=== PATIENT | female | born 1960 | race Caucasian/White ===

== ENCOUNTER 2023-10-23 12:34 | Outpatient (OUT) | payer BC, SELFPAY ==
--- NOTE | 2023-10-23 12:45 | VEIN_ITS ---
Patient Name: ELLE ISIDRO MR#: [id number] : 1960 Exam Date: 10/23/2023 Ordering Doctor: DR JEFF AVILEZ M.D. RADIOLOGY REPORT PROCEDURE: FACILITY [facility] - OFFICE VISIT INITIAL COMPARISON: None. PROGRESS NOTES: [age] year old female who presents with a 5 year history of leg swelling, pain, muscle cramping, dilated bulging veins, discolored veins. The patient's right leg symptoms are worse than the left. There has been a progression of symptoms over time. This increases with prolonged leg dependency. The patient describes an improvement with rest, elevation, walking, support stockings common medication. The patient denies any signs and symptoms to suggest arterial ischemia. The patient describes a family history of varicose veins on paternal side. The patient has drinking and smoking history of: None. Patient has a past medical history significant for atrial fibrillation, hypertension, hypothyroidism, and obesity. The patient denies a history of deep venous thrombus or pulmonary embolus. See separate history and physical for medication list. Prior treatment for vein disease within left leg. Has worn compression stockings until recently when patient discontinued due to the amount of skin tenderness/pain. After review of nurse notes, history and physical exam I discussed at length the pathophysiology of venous hypertension and possible treatments, therapies and strategies available. We discussed at length the importance of elevating the lower extremities above the level of the heart, increased physical activity and compression stocking use. Ultrasound venous reflux study performed today was discussed at length with the patient. The report demonstrates abnormally dilated and incompetent right great saphenous, small saphenous, and anterior accessory saphenous veins with associated varicosities and design engineer veins segments of mild dilation and numerous segments demonstrating reflux within the left great saphenous, also small saphenous, and anterior accessory saphenous veins with associated varicosities. Left great saphenous vein is a discontinuous, likely from prior treatment. PHYSICAL EXAM: The right leg demonstrates multiple varicosities, numerous spider veins, no ulceration, mild edema at time of imaging, no skin discoloration. The left leg demonstrates several varicosities, numerous spider veins, no ulceration, mild edema at time of imaging, no skin discoloration. Both thighs, legs and feet were symmetrically warm to the touch. Good posterior tibial and dorsalis pedis pulses were present bilaterally. VEIN/VC Facility EST Comprehensive IMPRESSION: 1. Bilateral lower extremity venous insufficiency 2. Bilateral lower extremity varicose veins 3. Bilateral lower extremity subcutaneous edema 4. No flow significant arterial disease 5. CEAP: C3, EC, , NV PLAN: 1. Continued use of compression stockings 2. Elevated legs and increased physical activity symptomatic relief 3. Endovenous laser ablation of right great saphenous, right small saphenous, and right anterior accessory saphenous veins. 4. Microfoam chemical ablation of incompetent branch saphenous varicosities bilaterally and incompetent discontinuous segment of left great saphenous vein (prior treatment). 5. Bilateral sclerotherapy. Nurse notes, history and physical were reviewed and confirmed, see attached forms. The nurse was present throughout the physical exam and consultation Dictated by: Oneil Elizabeth M.D. on 10/23/2023 at 14:52 Approved by: Oneil Elizabeth M.D. on 10/23/2023 at 15:01
--- NOTE | 2023-10-23 12:45 | VEIN_ITS ---
Patient Name: ELLE ISIDRO MR#: [id number] : 1960 Exam Date: 10/23/2023 Ordering Doctor: DR JEFF AVILEZ M.D. RADIOLOGY REPORT PROCEDURE: VC EXT VENOUS REFLUX AMBER LMTD COMPARISON: None. INDICATIONS: Painful varicose veins of bilat lower extremities I83.813 TECHNIQUE: Duplex imaging of the lower extremity to assess the deep and superficial venous system for the presence of deep or superficial venous incompetence and to document the location and severity of disease. The study includes evaluation of the great saphenous vein (GSV), anterior accessory saphenous vein (AASV) and small saphenous vein (SSV). Patient scanned in reverse Trendelenburg and standing. FINDINGS: RIGHT LOWER EXTREMITY: Saphenofemoral Junction Reflux: Yes 6.3mm 2.4 sec GSV: Diam (mm) Reflux/ Time (sec) Proximal Thigh 6.2 Yes 4.8 Mid Thigh 5.4 Yes 1.6 Distal Thigh 4.0 Yes 3.5 Prox Calf 5.6 Yes 4.6 Mid Calf 5.3 Yes 1.9 Saphenopopliteal Junction Reflux: 7.9mm Yes 0.5 SSV: Proximal Calf 6.1 Yes 0.5 Mid Calf 6.0 Yes 1.3 AASV: Proximal Thigh 5.8 Yes 1.8 Mid Thigh 5.5 Yes 0.8 Distal Thigh Thrombi: No acute or chronic thrombus. Compressibility: Normal. Flow: Mild deep venous reflux. Preforator: Distal medial lower leg 3.6mm with 1.0s reflux. Distal medial lower leg measures 3.8 mm with 0.9s reflux. Tech Note: Fluid collection anterior/lateral right knee measures 6.6 x 5.3 x 1.2 cm. Incompetent varicose vein distal medial thigh off of AASV measures 4.4 mm with 1.0s reflux. Varicose vein proximal medial lower leg measures 6.9 mm with 4.2s reflux. Varicose vein mid posterior medial calf measures 6.1 mm with 1.1s reflux. Proximal medial lower leg varicose vein measures 4.0 mm with 1.6s reflux. LEFT LOWER EXTREMITY: Saphenofemoral Junction Reflux: Yes 8.0 mm 3.0 sec GSV: Diam (mm) Reflux/Time (sec) Proximal Thigh 5.6 Yes 0.7 Mid Thigh 2.5 Yes 0.5 Distal Thigh 3.0 Yes 0.3 Prox Calf 2.1 Yes 1.0 Mid Calf 2.6 Yes 0.8 Saphenopopliteal Junction Relux: 4.2 mm Yes 1.3 SSV: Proximal Calf 2.4 Yes 1.1 Mid Calf 3.7 Yes 0.4 AASV: Proximal Thigh 5.5 Yes 1.4 Mid Thigh 4.2 Yes 0.5 Distal Thigh Thrombi: No acute or chronic thrombus. Compressibility: Normal. Flow: Mild deep venous reflux. Roll Slicing Machine Tender: Mid posterior calf 6.4 mm with 0.5s reflux. Tech Note: Discontinuous GSV and SSV. Heterogeneous area with posterior shadow proximal medial lower leg measures 9.6 x 8.6 x 5.7 mm. Fluid collection anterior/lateral left knee measures 5.9 x 4.2 x 1.0 cm. Incompetent varicose vein mid posterior calf measures 5.1 mm with 4.6s reflux. CONCLUSION: 1. Abnormally dilated and incompetent right great saphenous vein, small saphenous vein, and anterior accessory saphenous vein with associated incompetent branch saphenous varicosities. 2. Discontinuous left great saphenous vein with segments of abnormal dilation and reflux. 3. Abnormal reflux within left small saphenous and anterior accessory saphenous veins with borderline dilation. 4. Prominent scratcher tender veins bilaterally with abnormal reflux. 5. Small heterogeneous masslike area 10 millimeters diameter with significant posterior shadowing seen within proximal medial lower left leg. Consider radiographs of left tibia and fibula for possible metallic fragment or calcification. Dictated by: Oneil Elizabeth M.D. on 10/23/2023 at 14:17 Approved by: Oneil Elizabeth M.D. on 10/23/2023 at 14:52
== END 2023-10-23 12:35 | disposition home or self-care (01) ==
LOC: VC 12:35
PROVIDERS: PCP Family Medicine; Visit Provider Nurse Practitioner Family
DX: I87.2 Venous insufficiency (chronic) (peripheral) (principal); M79.604 Pain in right leg; M79.605 Pain in left leg
CPT/HCPCS: 93970; G0463

== ENCOUNTER 2023-10-28 13:42 | Outpatient (OUT) | payer BC, SELFPAY ==
--- NOTE | 2023-10-28 14:00 | CA_ITS ---
Patient Name: ELLE ISIDRO MR#: [id number] : 1960 Exam Date: 10/28/2023 Ordering Doctor: NATALIA WHEAT CNP ECHOCARDIOGRAM REPORT PROCEDURE: CA ECHO DOPPLER COMPLETE INDICATIONS: Dyspnea on exertion, edema, hypertension, loop recorder, ablation COMPARISON: None. DESCRIPTION: COMPLETE ECHOCARDIOGRAM Real-time transthoracic echocardiography with 2D, M-mode, spectral and color flow Doppler performed. QUALITY: Technical quality was good. 65 , 262#, BSA 2.22 m2, BP 138/70 LEFT VENTRICLE: Normal chamber size. Normal left ventricular wall thickness. Normal systolic function. LV EF: Normal left ventricular ejection fraction, (>55%). DIASTOLIC: Normal diastolic function. ATRIAL SEPTUM: Visually appears intact. LEFT ATRIUM: Normal chamber size. RIGHT ATRIUM: Normal chamber size. RIGHT VENTRICLE: Normal chamber size. Normal right ventricular systolic function. TRICUSPID VALVE: Normal mobility and thickness. No stenosis with trivial regurgitation. Doppler studies reveal mildly (35-45) elevated right sided pressures. RVSP 38 mmHg MITRAL VALVE: Normal mobility and thickness. No evidence of mitral valve stenosis. Mild mitral annular calcification. No mitral regurgitation. AORTIC VALVE: Normal trileaflet appearance. No visible sclerosis. Normal leaflet mobility. No evidence of aortic valve stenosis. No aortic regurgitation. AORTIC ROOT: Normal diameter and appearance. PULMONIC VALVE: Normal thickness and mobility. No stenosis. No regurgitation. PERICARDIUM: No evidence of pericardial effusion. IVC: IVC is dilated (2.5 cm), collapses with respiration. PLEURA: CONCLUSION: 1. Normal ventricular size and systolic function. LVEF is 55 to 60%. 2. No significant valvular dysfunction. 3. Mildly elevated right-sided pressures. 4. No pericardial effusion. Adult Echocardiography Procedure Report Left Ventricle LVEDD (3.7 - 5.6 cm): 4.43 cm LVESD (2.2 - 4.0 cm): 3.04 cm LVIVS thickness (0.6 - 1.2 cm): 0.83 cm LVPW thickness (0.5 - 1.0 cm): 0.87 cm e': 0.12 m/s E - e': 6.98 LVOT Max Gradient: 4.99 mm[Hg] LVOT Area (cm2): 1.12 m/s Peak Velocity (LVOT): 1.12 m/s Mean Velocity (LVOT): 0.73 m/s LVOT Diameter 1.74 cm Left Atrium LA Volume Index (2D A2C): 26.67 ml/m2 Left Atrium Systolic Dimension: 3.16 cm Mitral Valve MV E to A Ratio: 1.77 Mitral Valve A-Wave Peak Velocity: 0.46 m/s Mitral Valve E-Wave Peak Velocity: 0.82 m/s Right Ventricle Aorta AO Root Diam: 3.44 cm Aortic Valve AoV Area (Peak Cholo): 1.61 cm2, 1.61 cm2 AoV Area (VTI): 1.64 cm2, 1.64 cm2 Peak Velocity(Antegrade Flow): 1.65 m/s Peak Gradient(Antegrade Flow): 10.86 mm[Hg] Mean Velocity(Antegrade Flow): 1.03 m/s Mean Gradient(Antegrade Flow): 4.96 mm[Hg] Velocity Time Integral: 39.22 cm Tricuspid Valve Peak Velocity (Regurgitant Flow): 2.73 m/s Pulmonic Valve Mean Gradient: 2.91 mm[Hg] Mean Velocity: 0.80 m/s Peak Velocity: 1.07 m/s, 1.10 m/s Peak Gradient: 4.87 mm[Hg], 4.61 mm[Hg] Right Atrium Right Atrium Systolic Pressure: 41.45 ml, 41.45 ml Dictated by: Trenton Mcmahan M.D. on 10/29/2023 at 09:30 Approved by: Trenton Mcmahan M.D. on 10/29/2023 at 09:33
--- OUTSIDE RECORDS SUMMARY | 2023-10-28 14:00 | XMS_ITS | CCD ---
Author Organization [facility] Care Team Providers Care [employer] Manager Name Role Phone ALFIE SOTO Admitting Unavailab le ALFIE SOTO Attending Unavailab le HEMEYER, EDWARD Primary Care Unavailable ALFIE SOTO Consulting Unavailab le HEMEYER, EDWARD Admitting Unavailable HEMEYER, EDWARD Attending Unavailable HEMEYER, EDWARD Primary Care Unavailable HEMEYER, EDWARD Consulting Unavailable HEMEYER, EDWARD Admitting Unavailable HEMEYER, EDWARD Attending Unavailable HEMEYER, EDWARD Primary Care Unavailable ELTAHAWY, EHAB Admitting Unavailable ELTAHAWY, EHAB Attending Unavailable HEMEYER, EDWARD Primary Care Unavailable ELTAHAWY, EHAB Consulting Unavailable ELTAHAWY, EHAB Admitting Unavailable ELTAHAWY, EHAB Attending Unavailable HEMEYER, EDWARD Primary Care Unavailable ELTAHAWY, EHAB Consulting Unavailable ELTAHAWY, EHAB Admitting Unavailable ELTAHAWY, EHAB Attending Unavailable HEMEYER, EDWARD Primary Care Unavailable ELTAHAWY, EHAB Consulting Unavailable HEMEYER, EDWARD Referring Unavailable RICO SCHROEDER Admitting Unavailable RICO SCHROEDER Attending Unavailable HEMEYER, EDWARD Primary Care Unavailable ARJUN, RICO Admitting Unavailable ARJUN, RICO Attending Unavailable HEMEYER, EDWARD Primary Care Unavailable HEMEYER, EDWARD Referring Unavailable HEMEYER, EDWARD Referring Unavailable ARJUN, RICO Admitting Unavailable ARJUN RICO Attending Unavailable HEMEYER, EDWARD Primary Care Unavailable HEMEYER, EDWARD J Attending Unavailable HEMEYER, EDWARD J Attending Unavailable ARJUN, RICO Referring Unavailable DEEJAY HUANG Attending Unavailable NATALIA WHEAT Attending Unavailable Allergies Allergy Classification Reported Allergen(s) Allergy Type Date of Onset Reaction(s) Facility (3 sources) Morphine; Translations: [MORPHINE] Drug Allergy 8 [facility] Repository (3 sources) Penicillins; Translations: [PENICILLINS] Drug allergy (disorder) 8 [facility] Repository (3 sources) Prochlorperazine ; Translations: [DULOXETINE] Drug Allergy 9 [facility] Repository (1 source) Latex; Translations: [LATEX] Propensity to adverse reactions (disorder) 2 [facility] Repository (1 source) Aspirin; Translations: [ASPIRIN] Drug Allergy 8 [facility] Repository Problems Active Problems Problem Classification Problem Date Documented Da te Episodic/Chronic Cardiac dysrhythmias (6 sources) Ventricular tachycardia; Translations: [Paroxysmal atrial fibrillation] Onset: 07-15-2018 Chronic Cardiac dysrhythmias (2 sources) Palpitations; Translations: [Palpitations] Onset: 09-03-2023 Episodic Disorders of lipid metabolism (1 source) Mixed hyperlipidemia; Translations: [MIXED HYPERLIPIDEMIA] Onset: 07-20-2018 Chronic Essential hypertension (7 sources) Essential (primary) hypertension; Translations: [ESSENTIAL PRIMARY HYPERTENSION] Onset: 07-20-2018 Chronic Other connective tissue disease (2 sources) Pain in right leg; Translations: [Pain in right leg] Onset: 09-11-2022 Episodic Other connective tissue disease (2 sources) Pain in left leg; Translations: [Pain in left leg] Onset: 09-11-2022 Episodic Other lower respiratory disease (4 sources) Dyspnea, unspecified; Translations: [DYSPNEA UNSPECIFIED] Onset: 09-01-2018 Episodic Other lower respiratory disease (2 sources) Other forms of dyspnea; Translations: [Other forms of dyspnea] Onset: 10-06-2023 Episodic Past or Other Problems Problem Classification Problem Date Documented Date Episodic/Chronic Conditions associated with dizziness or vertigo (1 source) Dizziness and giddiness; Translations: [DIZZINESS AND GIDDINESS] Onset: 07-02-2018 Episodic Diabetes mellitus without complication (1 source) Impaired glucose tolerance (oral); Translations: [IMPAIRED GLUCOSE TOLERANCE ORAL] Onset: 07-20-2018 Episodic Nausea and vomiting (1 source) Nausea; Translations: [NAUSEA] Onset: 07-02-2018 Episodic Other diseases of veins and lymphatics (2 sources) Venous insufficiency (chronic) (peripheral); Translations: [Venous insufficiency (chronic) (peripheral)] Onset: 09-11-2022 Episodic Other screening for suspected conditions (not mental disorders or infectious disease) (1 source) Abnormal electrocardiogram [ECG] [EKG]; Translations: [ABNORMAL ELECTROCARDIOGRAM] Onset: 07-20-2018 Episodic Other skin disorders (1 source) Generalized hyperhidrosis; Translations: [GENERALIZED HYPERHIDROSIS] Onset: 07-02-2018 Episodic Residual codes; unclassified (1 source) Other specified personal risk factors, not elsewhere classified; Translations: [OTH SPEC PERSONAL RISK FACTORS NEC] Onset: 07-20-2018 Episodic Syncope (5 sources) Syncope and collapse; Translations: [SYNCOPE AND COLLAPSE] Onset: 06-30-2018 Episodic Varicose veins of lower extremity (2 sources) Varicose veins of bilateral lower extremities with other complications; Translations: [Varicose veins of bilateral lower extremities with other complications] Onset: 09-11-2022 Episodic Results Test Name Value Interpretation Reference Range Facility 36on 10-24-2023 36 Please have her go u p on her bumex to 1mg daily and continue this. Have her get labs at the end of next week. Thanks [facility] 37on 10-06-2023 37 *Increase bumex to 1 mg daily x5 days then reduce down to 0.5mg daily. *Have lab work done around October 15 or . *[facility] will call you to schedule a heart ultrasound. *We will call you in about 2 weeks to see how your weight and swelling is doing. [facility] Office Visiton 10-06-2023 Follow-up visit [id number] Elle Hurst 1960 Date Provider Department Center 10/06/2023 NATALIA GARAY Family History Problem Relation Age of Onset Diabetes Mother Cancer Mother Coronary artery disease Maternal Grandmother Stroke Maternal Grandmother Family Status - Relation Status Age at Mother Maternal Grandmother Level of Service:13813 MT OFFICE/OUTPATIENT ESTABLISHED MOD MDM 30 MIN [facility] Office Visiton 04-14-2023 Follow-up visit [id number] Elle Hurst 1960 F Date Provider Department Center 04/14/2023 DEEJAY BHANDARI Family History Problem Relation Age of Onset Diabetes Mother Cancer Mother Coronary artery disease Maternal Grandmother Stroke Maternal Grandmother Family Status - Relation Status Age at Mother Maternal Grandmother Level of Service:48020 MT OFFICE/OUTPATIENT ESTABLISHED MOD MDM 30-39 MIN Normal [facility] Free T3on 10-28-2021 FT3 3.39 pg/mL Normal 2.00-4.40 [facility] Specialist Comment on above: Performed By: #### T SH, FT4, FT3 #### [facility] [address] [place], [place] [id number] Free T4on 10-28-2021 Free T4 [Mass/Vol] 1.13 ng/dL Normal 0.80-1.80 [facility] Comment on above: Performed By: #### T SH, FT4, FT3 #### [facility] [address] [place], [place] [id number] Q - T3 TOTALon 10-28-2021 T3, TOTAL 111 ng/dL Normal 76-181 [facility] Specialist Comment on above: Order Comment: [facility] performed at: [place], [employer], [address], [address] [place] [address], [id number], Rope Rider: Balta Tran MD [facility] Date/Time: [facility] Results Received Date/Time: [facility] Reported Date/Time: Performed By: #### 8 59X, [id number] #### [facility] [address] [place] [address] Q - T3,REVERSE,LC/MS/MSon T3 REVERSE, LC/MS/MS 16 ng/dL Normal 8-25 [facility] Specialist Comment on above: Order Comment: [facility] performed at: [facility], [facility] [employer], [address], [place], [place], , Rope Rider: John Morton M.D.,PhD [facility] Date/Time: [facility] Results Received Date/Time: [facility] Reported Date/Time: Result Comment: This test was developed and its analytical performance characteristics have been determined by [employer] [place], [place]. It has not been cleared or approved by the U.S. Food and Drug Administration. This assay has been validated pursuant to the CLIA regulations and is used for clinical purposes. Performed By: #### 8 59X, [id number] #### [facility] [address] [place] [address] TSHon 10-28-2021 TSH 1.580 uIU/mL Normal 0.400-4.500 [facility] Specialist Comment on above: Performed By: #### T SH, FT4, FT3 #### [facility] [address] [place], [place] [id number] Comprehensive Metabolic Pane carline 10-22-2021 Albumin [Mass/Vol] 4.4 g/dL Normal 3.6-5.1 [facility] Comment on above: Performed By: #### C SHAZIA, LIPD #### [facility] [address] [place], [place] [id number] Albumin/Globulin [Mass ratio] 1.5 {ratio} Normal 1.0-2.5 [facility] Comment on above: Performed By: #### C SHAZIA, LIPD #### [facility] [address] [place], [place] [id number] ALP [Catalytic activity/Vol] 153 U/L High 35-119 [facility] Comment on above: Performed By: #### C SHAZIA, LIPD #### [facility] [address] [place], [place] [id number] ALT [Catalytic activity/Vol] 27 U/L Normal 6-33 [facility] Comment on above: Result Comment: 05/15 Female reference range changed. Performed By: #### C SHAZIA, LIPD #### [facility] [address] [place], [place] [id number] Anion gap [Moles/Vol] 16 mmol/L Normal 12-20 [facility] Specialist Comment on above: Result Comment: Effe ctive 06/20/2019 reference range changed. Performed By: #### C MP, LIPD #### [facility] [address] [place], [place] [id number] AST [Catalytic activity/Vol] 25 U/L Normal 9-34 [facility] Comment on above: Performed By: #### C SHAZIA LIPD #### [facility] [address] [place], [place] [id number] Bilirubin [Mass/Vol] 0.47 mg/dL Normal 0.30-1.20 [facility] Comment on above: Performed By: #### C SHAZIA LIPD #### [facility] [address] [place], [place] [id number] BUN/CREA 30 Ratio High 6-22 [facility] Comment on above: Performed By: #### C SHAZIA LIPD #### [facility] [address] [facility] [place] [id number] Calcium [Mass/Vol] 9.9 mg/dL Normal 8.6-10.2 [facility] Comment on above: Performed By: #### C SHAZIA LIPD #### [facility] [address] [place], [place] [id number] Chloride [Moles/Vol] 100 mmol/L Normal 98-107 [facility] Comment on above: Performed By: #### C SHAZIA LIPD #### [facility] [address] [facility] [place] [id number] CO2 [Moles/Vol] 27 mmol/L Normal 20-31 [facility] Comment on above: Performed By: #### C SHAZIA LIPD #### [facility] [address] [facility] [id number] Creatinine [Mass/Vol] 0.9 mg/dL Normal 0.6-1.4 [facility] Comment on above: Performed By: #### C SHAZIA LIPD #### [facility] [address] [facility] [id number] eGFRAA 79 mL/min/1.73m2 Normal >60 [facility] Specialist Comment on above: Performed By: #### C SHAZIA LIPD #### [facility] [address] [facility] [id number] eGFRNAA 65 mL/min/1.73m2 Normal >60 [facility] Specialist Comment on above: Performed By: #### C SHAZIA LIPD #### [facility] [address] [place], [place] [id number] Globulin (S) [Mass/Vol] 2.9 g/dL Normal 1.9-3.7 [facility] Specialist Comment on above: Performed By: #### C SHAZIA, LIPD #### [facility] [address] [place], [place] [id number] Glucose [Mass/Vol] 103 mg/dL High 65-99 [facility] Comment on above: Result Comment: For FASTING Glucose --- ADA reference ranges: Normal 65-99 mg/dl Prediabetes 100-125 Diabetes >/= 126 Performed By: #### C SHAZIA LIPD #### [facility] [address] [place], [place] [id number] Potassium [Moles/Vol] 4.8 mmol/L Normal 3.5-5.5 [facility] Specialist Comment on above: Performed By: #### C SHAZIA LIPD #### [facility] [address] [place], [place] [id number] Protein [Mass/Vol] 7.3 g/dL Normal 6.1-8.1 [facility] Specialist Comment on above: Performed By: #### C SHAZIA LIPD #### [facility] [address] [place], [place] [id number] Sodium [Moles/Vol] 138 mmol/L Normal 135-146 [facility] Specialist Comment on above: Performed By: #### C SHAZIA, LIPD #### [facility] [address] [place], [place] [id number] Urea nitrogen [Mass/Vol] 27 mg/dL High 7-25 [facility] Specialist Comment on above: Performed By: #### C SHAZIA LIPD #### [facility] [address] [place], [place] [id number] Hemoglobin A1Con 10-22-2021 EAG 116.89 Normal [facility] Comment on above: Performed By: #### A 1C #### [facility] [address] [place], [place] [id number] HbA1c (Bld) [Mass fraction] 5.7 % Normal 4.0-6.0 [facility] Specialist Comment on above: Performed By: #### A 1C #### [facility] [address] [place], [place] [id number] Lipid Panelon 10-22-2021 Cholesterol [Mass/Vol] 170 mg/dL Normal 125-200 [facility] Specialist Comment on above: Result Comment: Low risk < 200mg/dL Borderline risk 201-239 mg/dl High risk > or equal to 240 Performed By: #### C MP, LIPD #### [facility] [address] [place], [place] [id number] Cholesterol in HDL [Mass/Vol] 49 mg/dL Normal >40 [facility] Specialist Comment on above: Result Comment: High Cardiovascular Risk HDL <40 mg/dL Low Cardiovascular Risk HDL > or equal to 60 mg/dl Performed By: #### C MP, LIPD #### [facility] [address] [place], [place] [id number] Cholesterol in LDL [Mass/Vol] 110 mg/dL Normal [facility] Comment on above: Result Comment: LDL ATP III CLASSIFICATION LDL less than 100 mg/dl Optimal LDL 100-129 mg/dl Near or above optimal LDL 130-159 Borderline high LDL 160-189 High LDL greater than 189 mg/dl Very High Performed By: #### C MP, LIPD #### [facility] [address] [place], [place] [id number] Cholesterol in VLDL [Mass/Vol] 11 mg/dL Normal [facility] Specialist Comment on above: Performed By: #### C MP, LIPD #### [facility] [address] [place], [place] [id number] Cholesterol.total/C holesterol in HDL [Mass ratio] 3 {ratio} Normal [facility] Comment on above: Performed By: #### C MP, LIPD #### [facility] [address] [place], [place] [id number] Triglyceride [Mass/Vol] 55 mg/dL Normal 30-150 [facility] Specialist Comment on above: Result Comment: TRIG ATPIII CLASSIFICATIONS TRIG less than 150 mg/dl Normal TRIG 150-199 mg/dl Borderline High TRIG 200-500 mg/dl High TRIG greather than 500 mg/dl Very High Performed By: #### C MP, LIPD #### [facility] [address] [place], [place] [id number] APTTon 08-14-2021 aPTT Coag (Bld) [Time] 28.5 s Normal 25.0-35.0 [facility] Comment on above: Result Comment: ALL RESULTS MUST BE INTERPRETED WITH RESPECT TO BLOOD DRAWING ARTIFACT OR DILUTION ERROR OF ANTICOAGULANT AT THE TIME OF SAMPLING. THE APTT SHOULD NOT BE USED TO MONITOR UNFRACTIONATED HEPARIN THERAPY, THIS LABORATORY NO LONGER HAS AN ESTABLISHED THERAPEUTIC RANGE BASED ON THE APTT. IT IS RECOMMENDED THAT THE UFH - HEPARIN ASSAY (ANTI-XA ACTIVITY) BE USED FOR THIS PURPOSE. Performed By: #### 5 [id number], [id number] #### [facility] [address] Cardiovascular Lab Reporton 08-14-2021 Cardiovascular Lab Report [facility] Patient Name: Ar[facility] Freddy MR #: [id number] Department of Physician: Rico Schroeder MD Medicine Service Date: 08/14/2021 Division of Birthdate: 1960 Cardiology Room #: [facility] [place] [address] Cardiovascular Laboratory Report ATRIAL FIBRILLATION ABLATION PROCEDURE NOTE DATE OF PROCEDURE: 08/14/2021 PERFORMING PHYSICIAN: Dr. Rico Schroeder CONSENT: Patient NAME OF THE PROCEDURE: Pulmonary Vein Isolation and Comprehensive EP study. INDICATIONS FOR PROCEDURE: 1. Persistent atrial fibrillation non responsive to pharmacologic therapy. PROCEDURES PERFORMED: 1. Sonosite guided venous access as noted below and images stored in PACS. 2. Comprehensive EP study and catheter ablation for persistent atrial fibrillation through the pulmonary vein isolation technique. This includes right atrial recording and pacing, His bundle recording and right ventricular recording and pacing. 3. Intracardiac EP 3D mapping. 4. Intracardiac echocardiogram 5. Left atrial and coronary sinus recording and pacing to assess ablation results. 6. Left heart pressure measurements and LV pacing and recording. 7. Induction of arrhythmia and testing of ablation results using intravenous adenosine infusion. 8. Fluroscopy. FLUOROSCOPY:6 min 2s/44mGray PROCEDURE NOTE: 60-year-old lady with a history of atrial fibrillation, who has been noted to have palpitations and on evaluation was noted to have atrial fibrillation. She has been previously on flecainide and increased to 100 mg twice daily and had weight loss. Despite that, she still had evidence of atrial fibrillation. She opted to proceed with catheter ablation for treatment of her underlying atrial fibrillation. Risks, benefits and alternatives of the procedure were discussed with the patient and family who agreed to proceed. Please refer to my consult note for details of the discussion and of indications. The patient was brought to the EP lab and a procedural pause was performed identifying the patient, the procedure. The patient presented in SR and BRYAN was performed to rule out CHRISTOPHER clot. ICE imaging was used to rule out CHRISTOPHER clot. Both the groins were then prepared and draped. Ultrasound was used to determine the course and patency of the femoral veins on both sides and they were noted to be patent and the image stored in Merge. After infiltration with 1% lidocaine, 4 venous sheaths were placed in the right. Arterial line was placed by Anesthesia team. RFV: 8Fx4 [employer] ThermoCool SF Bi-Directional over SL1/ Vizigo, SL1:Pentaray, ICE catheter, CS Catheter (EZ Steer) Heparin bolus was given followed by continuous intravenous drip to target ACT around 350. An intracardiac ultrasound catheter was inserted into the right atrium to examine the right atrial anatomy, atrial septum, pulmonary vein anatomy and to monitor for pericardial effusion and guide transseptal access. At baseline, there was no pericardial effusion and no CHRISTOPHER clot. Esophagus was mapped using the AnipipoUND 3D mapping software with quadripolar catheter. Double transseptal access technique was used to cross to the left side. Following the first transeptal access, which was achieved via puncture of the thinner aspect of the septum using Harinder needle, Pentaray catheter was placed in the left atrium. Transseptal LA pressure was 13/10mmHg at baseline with pacing at 600 millisecond, the pressure was 16/14mmhg and with 400 millisecond pacing LA pressure was 21/10mmhg. Second transseptal pressure was noted to be 20/10mmHg. With repeat access, SL1 sheath was exchanged over a wire to 8.5F Vizigo sheath. With aire manipulation, patient went into Afib and was cardioverted to SR. Pulmonary vein and left atrial anatomic mapping was performed using a 3-D CARTO computer-based mapping system. Identification of the pulmonary vein ostia was assisted by the left atrial signals on the ablation catheter, the ICE catheter and the Pentaray catheter placed in the individual pulmonary veins. Left atrial mapping was performed which revealed normal LA voltage. WACA was performed and following completion, entrance block was noted. Subsequent to ablation, I verified with the pace capture to note that there was no capture in any of the veins and confirmed isolation and exit block. While performing ablation on the right anterior WACA, phrenic nerve capture was evaluated before ablation. I then turned my attention to the right atrial aspect. Given the inducible flutter CTI ablation was performed. Ablation was performed from the tricuspid valve to the IVC following which bidirectional block was demonstrated with high to low activation. EP study was then performed and at baseline AH 114ms and HV 59ms respectively. AV wenkebach was observed at (more content not included)... Normal [facility] POC GLUCOSE LABon 08-14-2021 Glucose [Mass/Vol] 86 mg/dL Normal 70-100 [facility] Comment on above: Performed By: #### 8 [id number] #### [facility] [address] PROTHROMBIN TIMEon 2 INR Coag (PPP) [Relative time] 0.97 {INR} Normal 0.91-1.16 [facility] Comment on above: Result Comment: ACC[facility] P RECOMMENDED INR FOR WARFARIN THERAPY ------ ------- CONDITION INR PROPHYLAXIS OF VENOUS THROMBOSIS 2-3 (HIGH-RISK SURGERY) TREATMENT OF VENOUS THROMBOSIS 2-3 TREATMENT OF PULMONARY EMBOLISM 2-3 PREVENTION OF SYSTEMIC EMBOLISM: 2-3 ACUTE MYOCARDIAL INFARCTION TISSUE HEART VALVES VALVULAR HEART DISEASE ATRIAL FIBRILLATION RECURRENT SYSTEMIC EMBOLISM MECHANICAL HEART VALVE 2.5-3.5 FROM: ORAL ANTICOAGULANTS. MECHANISM OF ACTION, CLINICAL EFFECTIVENESS, AND OPTIMAL THERAPEUTIC RANGE. CHEST 1995;108:231S-246S. Performed By: #### 5 [id number], [id number] #### [facility] [address] [place] [address], [facility] [[email or web address]] PT Coag (PPP) [Time] 12.9 s Normal 12.3-14.8 [facility] Comment on above: Result Comment: ALL RESULTS MUST BE INTERPRETED WITH RESPECT TO BLOOD DRAWING ARTIFACT OR DILUTION ERROR OF ANTICOAGULANT AT THE TIME OF SAMPLING. Performed By: #### 5 7307, 45712 #### [facility] [address] [facility]. [address] BASIC METABOLIC PANELon 07-17 Calcium [Mass/Vol] 9.4 mg/dL Normal 8.6-10.3 [facility] Comment on above: Performed By: #### 0 0071 #### [facility] [address] [facility] [place] [address], [facility] [[email or web address]] Chloride [Moles/Vol] 103 mmol/L Normal 98-107 [facility] Comment on above: Performed By: #### 0 0071 #### [facility] [address] [facility] [address], [facility] [[email or web address]] CO2 [Moles/Vol] 27 mmol/L Normal 21-31 [facility] Comment on above: Performed By: #### 0 0071 #### [facility] [address] [facility] [address], [facility] [[email or web address]] Creatinine [Mass/Vol] 1.10 mg/dL Normal 0.60-1.20 [facility] Comment on above: Performed By: #### 0 0071 #### [facility] [address] eGFR- non- 51 ml/min/1.73sq m Abnormal >60 [facility] Comment on above: Performed By: #### 0 0071 #### [facility] [address] [place] [address], [facility] [[email or web address]] GFR/1.73 sq M.predicted among blacks MDRD (S/P/Bld) [Vol rate/Area] mL/min/{1.73_m2} Normal >60 [facility] Comment on above: Performed By: #### 0 0071 #### [facility] [address] [place] [address], [facility] [[email or web address]] Glucose [Mass/Vol] 92 mg/dL Normal 70-100 [facility] Comment on above: Performed By: #### 0 0071 #### [facility] [address] [place] [address], [facility] [[email or web address]] Potassium [Moles/Vol] 4.0 mmol/L Normal 3.5-5.1 [facility] Comment on above: Performed By: #### 0 0071 #### [facility] [address] [facility]. [address] Sodium [Moles/Vol] 136 mmol/L Normal 136-145 [facility] Comment on above: Performed By: #### 0 0071 #### [facility] [address] [place] [address], [facility] [[email or web address]] Urea nitrogen [Mass/Vol] 27 mg/dL High 7-25 [facility] Comment on above: Performed By: #### 0 0071 #### [facility] [address] [place] [address], [facility] [[email or web address]] CBC W/DIFFon 08-12-2021 ABS IMM GRANS 0.0 10*3/uL Normal 0.0-0.2 [facility] Comment on above: Performed By: #### 5 0103 #### [facility] [address] [place] [address], [facility] [[email or web address]] ABS NEUTROPHILS 4.5 10*3/uL Normal 1.6-7.6 [facility] Comment on above: Performed By: #### 5 3 #### [facility] [address] [place] [address], [facility] [[email or web address]] Basophils (Bld) [#/Vol] 0.1 10*3/uL Normal 0.0-0.2 [facility] Comment on above: Performed By: #### 5 3 #### [facility] [address] [place] [address], [facility] [[email or web address]] Basophils/100 WBC (Bld) 0.8 % Normal 0.0-1.0 [facility] Comment on above: Performed By: #### 5 3 #### [facility] [address] [place] [address], [facility] [[email or web address]] Eosinophils (Bld) [#/Vol] 0.3 10*3/uL Normal 0.0-0.5 [facility] Comment on above: Performed By: #### 5 3 #### [facility] [address] [place] [address], [facility] [[email or web address]] Eosinophils/100 WBC (Bld) 4.4 % Normal 0.0-6.0 [facility] Comment on above: Performed By: #### 5 3 #### [facility] [address] [facility] [place] [address], [facility] [[email or web address]] Erythrocyte distribution width (RBC) [Ratio] 12.8 % Normal 11.5-15.0 [facility] Comment on above: Performed By: #### 3 #### [facility] [address] [place] [address], [facility] [[email or web address]] Hematocrit (Bld) [Volume fraction] 43.1 % Normal 36.0-45.0 [facility] Comment on above: Performed By: #### 3 #### [facility] [address] [place] [address], [facility] [[email or web address]] Hemoglobin (Bld) [Mass/Vol] 13.6 g/dL Normal 12.0-15.0 [facility] Comment on above: Performed By: #### 102 #### [facility] [address] [place] [address], [facility] [[email or web address]] IMMATURE GRANS 0.3 % Normal 0.0-1.0 [facility] Comment on above: Performed By: #### 5 3 #### [facility] [address] [facility] [place] [address], [facility] [[email or web address]] Lymphocytes (Bld) [#/Vol] 2.0 10*3/uL Normal 1.2-4.0 [facility] Comment on above: Performed By: #### 3 #### [facility] [address] [place] [address], [facility] [[email or web address]] Lymphocytes/100 WBC (Bld) 27.2 % Normal 20.0-45.0 [facility] Comment on above: Performed By: #### 102 #### [facility] [address] [place] [address], [facility] [[email or web address]] MCH (RBC) [Entitic mass] 28.9 pg Normal 27.0-33.0 [facility] Comment on above: Performed By: #### 5 3 #### [facility] [address] MCHC (RBC) [Mass/Vol] 31.6 g/dL Low 32.0-35.0 [facility] Comment on above: Performed By: #### 5 3 #### [facility] [address] [place] [address], [facility] [[email or web address]] MCV (RBC) [Entitic vol] 91.7 fL Normal 82.0-98.0 [facility] Comment on above: Performed By: #### 5 3 #### [facility] [address] [place] [address], [facility] [[email or web address]] Monocytes (Bld) [#/Vol] 0.5 10*3/uL Normal 0.1-1.0 [facility] Comment on above: Performed By: #### 3 #### [facility] [address] [facility] [facility] [address], [facility] [[email or web address]] MONOS 6.2 % Normal 5.0-12.0 [facility] Comment on above: Performed By: #### 5 0103 #### [facility] [address] [place] [address], [facility] [[email or web address]] Neutrophils/100 WBC (Bld) 61.1 % Normal 40.0-72.0 [facility] Comment on above: Performed By: #### 5 0103 #### [facility] [address] [place] [address], [facility] [[email or web address]] Nucleated RBC/100 WBC (Bld) [Ratio] 0 % Normal 0-0 [facility] Comment on above: Performed By: #### 5 0103 #### [facility] [address] [facility] [place] [address], [facility] [[email or web address]] PLAT CNT 299 10*3/uL Normal 150-400 [facility] Comment on above: Performed By: #### 5 0103 #### [facility] [address] [place] [address], [facility] [[email or web address]] RBC (Bld) [#/Vol] 4.70 10*6/uL Normal 3.80-5.00 [facility] Comment on above: Performed By: #### 5 3 #### [facility] [address] [place] [address], [facility] [[email or web address]] WBC (Bld) [#/Vol] 7.28 10*3/uL Normal 4.00-10.60 [facility] Comment on above: Performed By: #### 5 3 #### [facility] [address] [place] [address], [facility] [[email or web address]] CTA CHESTon 08-12-2021 CTA CHEST [facility] Department of Radiology [address] [place] [address] [id number] ======== Patient Name: ELLE HURST : 1960 Sex: F Age: Race: White Pt. Location: 75 Patient Status: D Ordered Date: 07/25/2021 10:15:00 AM Completed Date: 08/12/2021 03:33 PM Requesting Provider: RICO SCHROEDER Attending Provider: RICO SCHROEDER Report Copy To: HAY CROWELL Signs & Symptoms: I48.0 Paroxysmal atrial fibrillation I10 History: [place] patient will need labs Comments: AFib Ablation 08/14/21 , Exam: CTA CHEST ======== CTA CHEST 08/12/2021 3:33 PM CLINICAL INDICATIONS: I48.0 Paroxysmal atrial fibrillation I10 TECHNOLOGIST COMMENTS: PRE ABLATION CHEST CT. PT STATES HAVING AFIB FEELING AT NIGHT QUESTIONS PER RADIOLOGIST: AFib Ablation 08/14/21 , PROTOCOL: Axial CT angiography images were obtained with IV contrast. CONTRAST: Contrast: OMNIPAQUE 350 (LOCM), 100 milliliter, Intravenous Contrast: OMNIPAQUE 300 (LOCM), 15 milliliter, Oral TECHNIQUE: Multidetector CT axial slices of the chest were obtained with IV contrast. Multiplanar reformats were performed and viewed on a separate workstation and reviewed to further define anatomy and possible pathology. All CT scans at this facility use dose modulation, iterative reconstruction, and/or weight based dosing when appropriate to reduce radiation dose to as low as reasonably achievable. COMPARISON: None. FINDINGS: Lower neck: Thyroid gland within normal limits, no supraclavicle adenopathy. Vessels: Pulmonary arteries appeared grossly unremarkable. No atherosclerotic changes in the aorta. and coronary arteries. Mediastinum and Maria E: Within normal limits. Heart: Normal size. No pericardial effusion. Airways: Within normal limits Lungs: Within normal limits. Pleura: Within normal limits. Chest Wall: Loop recorder is seen in the left anterior and medial upper chest Upper Abdomen: Clips are seen at the gallbladder fossa from prior cholecystectomy. Otherwise, visualized upper abdominal viscera appeared unremarkable. Small amount of contrast is seen coursing through the esophagus and accumulating in the stomach. Bones: Minimal anterior bony spurring in the mid and lower thoracic spine suggesting minimal spondylosis. No acute bony pathology. 3-D volume rendered images of the left atrium, left atrial appendage and 2 draining veins on each side are obtained and stored on the PACS and available for the EP team during ablation procedure. The left atrium is normal in size and configuration. The left atrial appendage measures 14 mm at the ostium and is approximately 3.3 cm in length. The left superior pulmonary vein ostium is approximately 18 mm in diameter and the first branch is approximately 2.8 cm from the ostium. The left inferior pulmonary vein ostium is 19.5 mm in diameter and the first branch is approximately 60 mm from the ostium. The right superior pulmonary vein ostium is 16 mm in diameter and first branch is approximately 2 cm from the ostium. The right inferior pulmonary vein ostium is 20 mm in diameter and first branch is approximately 12 mm from the ostium. Left atrium measures 6.3 x 3.7 cm in maximum transverse dimensions. Small amount of contrast is seen in the esophagus which appears immediately posterior to the left atrium and closer to the origin/ostium of the left inferior pulmonary vein. IMPRESSION: Left atrial size and morphology is normal as listed above with measurements of 2 pulmonary vein ostium on each side and intact left atrial appendage without filling defects. Evidence of prior cholecystectomy and loop recorder in the left upper anterior and medial chest wall. Otherwise, unremarkable chest CT with contrast. Electronically signed: Nadia Reid. Transcribed by: [email or web address], User Resident: Electronically Signed by: NADIA REID @ 08/19/2021 09:29 AM Normal [facility] Comment on above: Order Comment: AFib Ablation 08/14/21 , Q - T3 TOTALon 05-16-2021 T3, TOTAL 133 ng/dL Normal 76-181 [place] [employer] Comment on above: Order Comment: [facility] Testing performed at: [facility], [facility] [employer], [address], [address] [place], [address], Rope Rider: Balta Tran MD [facility] Collection Date/Time: [facility] Results Received Date/Time: [facility] Reported Date/Time: FASTING: NO Performed By: #### 9 0963, [id number] #### [facility] [address] [place] [address] Q - T3,REVERSE,LC/MS/MSon T3 REVERSE, LC/MS/MS 14 ng/dL Normal 8-25 [facility] [place] [facility] Comment on above: Order Comment: [facility] performed at: [facility], [facility] [employer], [address], [place], [place], , Rope Rider: John Morton M.D.,PhD [facility] Date/Time: [facility] Results Received Date/Time: [facility] Reported Date/Time: FASTING: NO Result Comment: This test was developed and its analytical performance characteristics have been determined by [employer] [place], [place]. It has not been cleared or approved by the U.S. Food and Drug Administration. This assay has been validated pursuant to the CLIA regulations and is used for clinical purposes. Performed By: #### 9 0963, 859X #### [facility] [address] [place] [address] Cardiovascular Lab Reporton 01-07-2021 Cardiovascular Lab Report [facility] Patient Name: Elle Hurst [facility] MR #: [id number] Department of Physician: Rico Schroeder MD Medicine Service Date: 01/07/2021 Division of Birthdate: 1960 Cardiology Room #: [facility] [place] [address] Cardiovascular Laboratory Report LOOP IMPLANT PROCEDURE NOTE DATE OF PROCEDURE: 01/07/2021 PERFORMING PHYSICIAN: Dr. Rico Schroeder INDICATIONS FOR PROCEDURE: 1. Palpitations CONSENT: Patient LOCATION: EP Lab PROCEDURAL SEDATION: None FLUOROSCOPY TIME: 0min PREPARATION: Preoperative antibiotics was administered. PROCEDURES PERFORMED: 1. LOOP implant PROCEDURE NOTE: The patient is a 60-year-old lady with a history of palpitations, who was previously evaluated with a Holter monitor that showed non-sustained VT but no atrial fibrillation that was noted. She continues to experience palpitations, and hence, the loop monitor was placed for further symptom EKG correlation. The risks, benefits and alternatives of the procedure were discussed with the patient who agreed to proceed. Please refer to my consult note for details of the discussion and of indications. Patient was brought to the EP lab in the post absorptive state. A procedural pause was performed verifying the patient, the procedure. Sterile prep and drape were performed over the left precordium and anesthesia with 1% lidocaine was followed by a small incision was made in the 3rd intercostal space near the sternum on the left using the [employer] tool. The loop recorder was then injected subcutaneously. Interrogation of the device noted good sensing parameters. Technical details of the device as noted below. The skin was then closed with 3-0 absorbable monofilament suture and glue applied to hold the edges together. Tegaderm was applied to cover the wound. The patient appeared to tolerate the procedure well and was returned to her room in stable condition. No complications were immediately observed. LOOP details: Device Model: M301 Lux-Dx Serial#: [id number]. Sensing is 0.14mV. IMPRESSION: Successful placement of LOOP implant with excellent sensing parameters. RECOMMENDATIONS: 1. Occlusive dressing to be changed after 14 days. 2. Do not wet the incision. Rico Schroeder MD Cardiac Electrophysiology Electronically Signed by: Rico Schroeder MD 01/09/2021 07:01 P Rico Schroeder MD Date Dict: 01/07/2021/09:50 A/Rico Schroeder MD Date Trans: 01/07/2021 10:07 Ger/dennis [id number] cc: Hay Crowell M.D. [facility] [address] [facility] [address] Normal [facility] PROF CHEM 8 (BAS METB)on Anion gap molar conc 12.1 mmol/L Normal [facility] Comment on above: Performed By: #### B MP #### [facility] [address] [place] [address] Esau Patricia Calcium mass conc 9.5 mg/dL Normal 8.4-10.2 [facility] Comment on above: Performed By: #### B MP #### [facility] [address] [place] [address] Esau Patricia Chloride molar conc 103 mmol/L Normal 98-107 [facility] Comment on above: Performed By: #### B MP #### [facility] [address] [place] [address] Esau Patricia CO2 molar conc 30.4 mmol/L Critically high 22.0-30.0 [facility] Comment on above: Performed By: #### B MP #### [facility] [address] [place] [address] Esau Patricia Creatinine mass conc 1.16 mg/dL Critically high 0.52-1.04 [facility] Comment on above: Performed By: #### B MP #### [facility] [address] [place] [address] Esau Patricia EGFR-AF DOMINICAN 58 mL/min/1.73m2 Critically low >=60 [facility] Comment on above: Performed By: #### B MP #### [facility] [address] [place] [address] Esau Patricia EGFR-NON AF DOMINICAN 48 mL/min/1.73m2 Critically low >=60 [facility] Comment on above: Performed By: #### B MP #### [facility] [address] [place] [address] Esau Patricia Glucose mass conc 103 mg/dL Normal 74-106 [facility] Comment on above: Performed By: #### B MP #### [facility] [address] [place] [address] Esau Patricia Potassium molar conc 4.5 mmol/L Normal 3.4-5.0 [facility] Comment on above: Performed By: #### B MP #### [facility] [address] [place] [address] Esau Patricia Sodium molar conc 141 mmol/L Normal 137-145 [facility] Comment on above: Performed By: #### B MP #### [facility] [address] [place] [address] Esau Patricia Urea nitrogen mass conc 20.0 mg/dL Critically high 7.0-17.0 [facility] Comment on above: Performed By: #### B MP #### [facility] [address] [place] [address] Esau Patricia Urea nitrogen/Creatinine mass ratio 17.2 mg/mg Normal [facility] Comment on above: Performed By: #### B MP #### [facility] [address] [place] [address] Esau Patricia CBC AUTO DIFFon 08-18-2018 Basophils #/vol (Bld) 0.0 103/ul Normal 0.0-0.1 [facility] Comment on above: Performed By: #### C BC #### [facility] [address] [place] [address] Esau Patricia Basophils/100 WBC (Bld) 0.7 % Normal 0.2-2.0 [facility] Comment on above: Performed By: #### C BC #### [facility] [address] [place] [address] Esau Patricia Eosinophils #/vol (Bld) 0.1 103/ul Normal 0.0-0.7 [facility] Comment on above: Performed By: #### C BC #### [facility] [address] [place] [address] Esau Patricia Eosinophils/100 WBC (Bld) 2.4 % Normal 0.9-7.0 [facility] Comment on above: Performed By: #### C BC #### [facility] [address] [place] [address] Esau Patricia Erythrocyte distribution width Ratio (RBC) 12.2 % Normal 11.0-15.0 [facility] Comment on above: Performed By: #### C BC #### [facility] [address] [place] [address] Esau Gomez Hematocrit Volume Fraction (Bld) 39.6 % Normal 36.0-48.0 [facility] Comment on above: Performed By: #### C BC #### [facility] [address] [place] [address] Esau Gomez Hemoglobin mass conc (Bld) 12.8 g/dL Normal 12.0-16.0 [facility] Comment on above: Performed By: #### C BC #### [facility] [address] [place] [address] Esau Gomez IG # 0.02 10e3/ul Normal 0.00-0.03 [facility] Comment on above: Performed By: #### C BC #### [facility] [address] [place] [address] Esau Gomez IG % 0.3 % Normal 0.0-0.5 [facility] Comment on above: Performed By: #### C BC #### [facility] [address] [place] [address] Esau Gomez Lymphocytes #/vol (Bld) 1.8 103/ul Normal 1.2-3.8 [facility] Comment on above: Performed By: #### C BC #### [facility] [address] [place] [address] Esau Gomez Lymphocytes/100 WBC (Bld) 29.6 % Normal 20.5-60.0 [facility] Comment on above: Performed By: #### C BC #### [facility] [address] [place], [place] [id number] Esau Gomez MANUAL DIFF REQ NO Normal [facility] Comment on above: Performed By: #### C BC #### [facility] [address] [place] [address] Esau Gomez MCH Entitic mass (RBC) 29.4 pg Normal 26.7-34.0 [facility] Comment on above: Performed By: #### C BC #### [facility] [address] [place], [place] [address] Esaulucia Desaien MCHC mass conc (RBC) 32.3 g/dL Normal 29.9-35.2 [facility] Comment on above: Performed By: #### C BC #### [facility] [address] [place], [place] [address] Esau Patricia MCV Entitic volume (RBC) 90.8 fL Normal 81.0-99.0 [facility] Comment on above: Performed By: #### C BC #### [facility] [address] [place] [id number] Esau Patricia Monocytes #/vol (Bld) 0.4 103/ul Normal 0.3-0.8 [facility] Comment on above: Performed By: #### C BC #### [facility] [address] [place], [place] [address] Esau Patricia Monocytes/100 WBC (Bld) 6.7 % Normal 1.7-12.0 [facility] Comment on above: Performed By: #### C BC #### [facility] [address] [place] [id number] Esau Patricia Neutrophils #/vol (Bld) 3.6 103/ul Normal 1.4-6.5 [facility] Comment on above: Performed By: #### C BC #### [facility] [address] [place], [place] [address] Esau Patricia Neutrophils/100 WBC (Bld) 60.3 % Normal 43.0-75.0 [facility] Comment on above: Performed By: #### C BC #### [facility] [address] [place] [id number] Esau Patricia Platelet mean volume Entitic volume (Bld) 10.0 fL Normal 9.5-13.5 [facility] Comment on above: Performed By: #### C BC #### [facility] [address] [place] [id number] Esau Patricia Platelets #/vol (Bld) 356 103/ul Normal 150-450 [facility] Comment on above: Performed By: #### C BC #### [facility] [address] [place] [address] Esau Gomez RBC #/vol (Bld) 4.36 106/ul Normal 4.20-5.40 [facility] Comment on above: Performed By: #### C BC #### [facility] [address] [place] [address] Esau Patricia WBC #/vol (Bld) 5.9 103/ul Normal 4.0-11.0 [facility] Comment on above: Performed By: #### C BC #### [facility] [address] [place] [address] Esau Gomez PROF CHEM 8 (BAS METB)on Anion gap molar conc 13.0 mmol/L Normal [facility] Comment on above: Performed By: #### B MP #### [facility] [address] [place] [address] Esau Patricia Calcium mass conc 10.4 mg/dL Critically high 8.4-10.2 [facility] Comment on above: Performed By: #### B MP #### [facility] [address] [place] [address] Esau Patricia Chloride molar conc 101 mmol/L Normal 98-107 [facility] Comment on above: Performed By: #### B MP #### [facility] [address] [place] [address] Esau Patricia CO2 molar conc 31.9 mmol/L Critically high 22.0-30.0 [facility] Comment on above: Performed By: #### B MP #### [facility] [address] [place] [address] Esau Patricia Creatinine mass conc 1.06 mg/dL Critically high 0.52-1.04 [facility] Comment on above: Performed By: #### B MP #### [facility] [address] [place] [address] Esau Patricia EGFR-AF DOMINICAN >60 Normal >=60 [facility] Comment on above: Performed By: #### B MP #### [facility] [address] [place] [address] Esau Patricia EGFR-NON AF DOMINICAN 54 mL/min/1.73m2 Critically low >=60 [facility] Comment on above: Performed By: #### B MP #### [facility] [address] [place] [id number] Esau Patricia Glucose mass conc 97 mg/dL Normal 74-106 [facility] Comment on above: Performed By: #### B MP #### [facility] [address] [place] [id number] Esau Patricia Potassium molar conc 4.9 mmol/L Normal 3.4-5.0 [facility] Comment on above: Performed By: #### B MP #### [facility] [address] [place] [address] Esau Patricia Sodium molar conc 141 mmol/L Normal 137-145 [facility] Comment on above: Performed By: #### B MP #### [facility] [address] [place] [address] Esau Patricia Urea nitrogen mass conc 22.0 mg/dL Critically high 7.0-17.0 [facility] Comment on above: Performed By: #### B MP #### [facility] [address] [place] [phone] Esau Patricia Urea nitrogen/Creatinine mass ratio 20.8 mg/mg Normal [facility] Comment on above: Performed By: #### B MP #### [facility] [address] [place] [id number] Esau Patricia NM STRESS/REST MULTIon 07-15 NM STRESS/REST MULTI [address] [place] [address] Patient: ELLE HURST Exam Date: 07/15/2018 : 1960 Gender:F Ordering : DR HAY CROWELL . Admission #: [id number] Family : Order #: [id number] CLICK HERE TO VIEW EXAM RADIOLOGY REPORT PROCEDURE: RADIONUCLIDE IMAGING STRESS/REST MULTI COMPARISON: None. INDICATIONS: Electrocardiogram abnormal R94.31, ventricular tachycardia I47.2, hypertension I10, syncope R55 TECHNIQUE: Exam Description: Stress/Rest two day protocol gated SPECT Rest Imagin.5 mCi Tc-99m Cardiolite IV on 07/21/2018 Stress Imaging 25.6 mCi Tc-99m Cardiolite IV on 07/15/2018 Exercise Protocol: Jey Heart Rate (bpm): Rest: 65 Max: 146 PMHR: 89 Blood Pressure: Rest: 122/70 Max: 142/80 Exercise Time: Minutes: 5 Seconds: 14 Stage Reached: Stage: 2 Mets 7.0 Symptoms: none Rest and peak stress ECG findings were non-diagnostic and the exercise portion of the study was Non-diagnostic per attending physician Dr. Crowell due to 1mm inferior ST depression. For more details please see separate cardiac stress test report. FINDINGS: QUALITY OF STUDY: Excellent. PERFUSION DEFECT: LOCATION: Basal anterior. Mid-anterior. Apical anterior. [place]. SIZE: Medium (3-4 segments). SEVERITY: Moderate. TYPE: Reversible. WALL MOTION: Normal. LV SIZE: Normal. 78 mL. TID / TCD: None; 0.9 LVEF: Normal. Calculated EF 72%. SUMMARY: Myocardial perfusion imaging study has ABNORMAL findings. CONCLUSION: 1. Suspected area of partial reversible ischemia in the anterior wall, LAD distribution. Followup is recommended 2. Abnormal exercise test due to EKG changes Dictated by: Louis Dickens M.D. on 07/21/2018 at 08:47 Approved by: Louis Dickens M.D. on 07/21/2018 at 08:49 Normal [facility] Encounters Encounter Date Encounter Type Care Provider Facility Start: 10-07-2023 End: 10-07-2023 ambulatory HAY CROWELL Not Available Start: 10-06-2023 End: 10-06-2023 ambulatory NATALIA [facility] Start: 09-03-2023 ambulatory RICO [facility] Start: 06-30-2023 End: 06-30-2023 ambulatory HAY CROWELL Not Available Start: 04-14-2023 End: 04-14-2023 ambulatory DEEJAY [facility] Start: 08-14-2021 End: 08-15-2021 ambulatory RICO SCHROEDER Facility:[facility] Start: 08-12-2021 End: 08-13-2021 ambulatory HAY CROWELL Facility:[facility] Start: 01-07-2021 End: 01-08-2021 ambulatory EDTAYLER CROWELL Facility:[facility] Start: 11-25-2018 End: 11-26-2018 Patient encounter procedure EHAB LYNSEYY Facility:[facility] Start: 09-01-2018 End: 09-02-2018 Patient encounter procedure EHAB RADHAHAWY Facility:[facility] Start: 08-18-2018 End: 08-19-2018 Patient encounter procedure EHAB RADHAHAWY Facility:[facility] Start: 07-21-2018 Patient encounter procedure EDTAYLER CROWELL Facility:[facility] Start: 07-15-2018 End: 07-16-2018 Patient encounter procedure EDTAYLER CROWELL Facility:[facility] Start: 06-30-2018 End: 07-01-2018 Patient encounter procedure ALFIE Ger SOTO Facility: Payers Date Payer Category Payer Unknown [id number] 2021 Unknown [id number] 1960 Unknown [id number] 2.16.84 [id number] 1960 Unknown [id number] 2.16.84 [id number] 1960 Unknown [id number] 2.16.84 [id number] 1960 Unknown [id number] 2.16.84 [id number] 1960 Unknown [id number] 2.16.84 [id number] 1960 Unknown [id number] 2.16.84 [id number] 1960 Unknown [id number] 2.16.8 [id number] 1960 Unknown [id number] 2.16.8 [id number] 1960 Unknown [id number] 2.16.8 [id number] 1960 Unknown [id number] 2.16.84 [id number] 1960 Unknown [id number] 2.16.84 [id number] 1958 Unknown [id number] Progress note 10-06-2023 Note Date & Type Note Facility 10-06-2023 Note OR Electrophysiology Consult Note Reason for visit: 6 month follow up, loop implant [employer] 10/06/2023 She has had increased dyspnea on exertion in the past few months. She has noticed weight gain, she is up to 262#, she's up 6# since March. She notes she was as high as 266#. She has made dietary modifications but she feels like she continues to gain weight. She feels better at 250# or less. She feels like her urine output is low. Denies CP, orthopnea, PND, dizziness/LH, bleeding issues. 04/14/23: Loop data review: continues to show pauses which are undersensing events, no pauses/arrhythmia she has been feeling well but has had some increasing lower extremity swelling she does take Bumex 0.5 mg every other day, discussed with her taking it for 3 days straight even on or off today to see if this improves and getting her back to baseline swelling/weight we believe her dry weight is somewhere around 245 pounds, she is to 56 pounds today and she has noticed an increase per previous PCP visit she has been noticing muscle spasm in her chest that is what she thinks it feels like. Comes and goes on its own and does not seem to be correlated with exertion. she had heart cath 2018 which showed nonobstructive coronary angiogram discussed with her to continue to monitor. 09/15/22 HPI: Elle Hurst is a 62 y.o. year old with past medical history of A-fib s/p PVI ablation 08/2021, a flutter status post CTI ablation 2021, hypertension, prediabetes, implantable loop monitor She is here for 6-month follow-up and review of her loop States has been feeling with no concerns of chest pain, RIVERA, shortness of breath, palpitations I reviewed her loop data there have been no concerns for any events. She has a lot of inappropriate undersensing events. She did have recent device Chek 08/04/2022 and also had no recent events at that time. 12/2021 Dr. Schroeder: cc: Afib s/p ablation Patient is s/p A. fib ablation on 08/14/2021. In the report it was erroneously mentioned that she had a BRYAN on the day of ablation but that was not the case as she was in sinus rhythm. She is doing very well post ablation and has lost weight approximately 20 pounds. This is happened to come off her medications for diabetes. Her chads Vasc score is 1 for hypertension and 2 if you have any concern of hypertension and diabetes. She is currently on flecainide. EP study 08/22/2021 1. Persistent atrial fibrillation s/p PVI ([facility]ACA). 2. Atrial flutter s/p CTI ablation 3. EP study revealing no retrograde accessory pathway. 4. LA filling pressures were high normal. 5. Normal LA voltage Previously, patient had a loop implant performed on 01/07/2021 and this has revealed episode of tachycardia noted on June 06, 2021 at 454 which appeared to be consistent with possible atrial fibrillation. Other episodes that was noted to be pause were all inappropriate due to under sensing. There was an episode on June 06, 2021 at midnight where she felt the symptoms of fluttering which appeared more consistent with atrial fibrillation. She notices that her episodes are more frequent. She is on flecainide 50 mg which I will increase to 100mg bid. She has lost 33 pounds since my last meeting but has not been evaluated for sleep apnea. She denied any chest pain EKG 06/25/2021 shows sinus rhythm. Prior HPI 59 yo female presents to clinic for routine f/u for palpitations, edema-lymphedema. Pt reports generalized fatigue, increased leg swelling, shortness of breath with exertion and palpitations. States this past thursday she had palpitations that lasted for over a half an hour, states she was at rest when it started and denied any recent illness, fever, chills, or change of her lifestyle. States she went to bed that evening with still feeling like her heart was racing, and it resolved while she slept. States that the entire next day she was exhausted and just felt terrible. Denied chest pain, fever, chills, N/V/D. Event monitor placed from 06-03 revealed 0 sinus rhythm with no atrial fibrillation there was a nonsustained ventricular tachycardia that was noted on 06/03/2020 AT 10PM of 4 beats occasional PVCs were seen. Echocardiogram performed on 05/30/2020 revealed ejection fraction of 60% normal systolic function and no significant valve problems PMH: Past Medical History: Diagnosis Date Abnormal ECG Arrhythmia Atrial fibrillation (CMS/HCC) Chronic kidney disease Hypertension PSH: Past Surgical History: Procedure Laterality Date ABLATION OF DYSRHYTHMIC FOCUS CARDIAC CATHETERIZATION CT CHEST ANGIOGRAM W AND/OR WO IV CONTRAST 08/19/2021 CT CHEST ANGIOGRAM W AND/OR WO IV CONTRAST BAUTISTA CONVERSION HAND SURGERY HYSTERECTOMY TUBAL LIGATION SH: Social Determinants of Health Tobacco Use: Low Risk (04/14/2023) Patient History Smoking (more content not included)... [facility] Progress note 10-06-2023 Note Date & Type Note Facility 10-06-2023 Note Patient here for 6 m o follow up persistent afib, hypertension, and LE edema. Had routine labs w/ lipid done 2 weeks ago. She doesn't think her diuretics are helping her. Denies chest pain, lightheadedness/syncope, and bleeding on Eliquis. Concerned about her LE lymphedema. Review of Systems Constitutional: Positive for malaise/fatigue and weight gain (6# since Mar 2023). Cardiovascular: Positive for dyspnea on exertion (intermittent), leg swelling and palpitations. All other systems reviewed and are negative. [facility] Progress note 04-14-2023 Note Date & Type Note Facility 04-14-2023 Note 256Patient here for 6 mo follow up afib and hypertension. C/o cjest cramping the past few weeks. Has had a few more palpitations lately also. Denies syncope and bleeding on Eliquis. Review of Systems Constitutional: Positive for malaise/fatigue and weight gain (14# since September 2022). Cardiovascular: Positive for chest pain, dyspnea on exertion, leg swelling and palpitations. Neurological: Positive for headaches and light-headedness. All other systems reviewed and are negative. [facility] Progress note 04-14-2023 Note Date & Type Note Facility 04-14-2023 Note OR Electrophysiology Consult Note Reason for visit: 6 month follow up, loop implant zoidu 04/14/23: Loop data review: continues to show pauses which are undersensing events, no pauses/arrhythmia she has been feeling well but has had some increasing lower extremity swelling she does take Bumex 0.5 mg every other day, discussed with her taking it for 3 days straight even on or off today to see if this improves and getting her back to baseline swelling/weight we believe her dry weight is somewhere around 245 pounds, she is to 56 pounds today and she has noticed an increase per previous PCP visit she has been noticing muscle spasm in her chest that is what she thinks it feels like. Comes and goes on its own and does not seem to be correlated with exertion. she had heart cath 2018 which showed nonobstructive coronary angiogram discussed with her to continue to monitor. 09/15/22 HPI: Elle Hurst is a 62 y.o. year old with past medical history of A-fib s/p PVI ablation 08/2021, a flutter status post CTI ablation 2021, hypertension, prediabetes, implantable loop monitor She is here for 6-month follow-up and review of her loop States has been feeling with no concerns of chest pain, RIVERA, shortness of breath, palpitations I reviewed her loop data there have been no concerns for any events. She has a lot of inappropriate undersensing events. She did have recent device Chek 08/04/2022 and also had no recent events at that time. 12/2021 Dr. Schroeder: cc: Afib s/p ablation Patient is s/p A. fib ablation on 08/14/2021. In the report it was erroneously mentioned that she had a BRYAN on the day of ablation but that was not the case as she was in sinus rhythm. She is doing very well post ablation and has lost weight approximately 20 pounds. This is happened to come off her medications for diabetes. Her chads Vasc score is 1 for hypertension and 2 if you have any concern of hypertension and diabetes. She is currently on flecainide. EP study 08/22/2021 1. Persistent atrial fibrillation s/p PVI (WACA). 2. Atrial flutter s/p CTI ablation 3. EP study revealing no retrograde accessory pathway. 4. LA filling pressures were high normal. 5. Normal LA voltage Previously, patient had a loop implant performed on 01/07/2021 and this has revealed episode of tachycardia noted on June 06, 2021 at 454 which appeared to be consistent with possible atrial fibrillation. Other episodes that was noted to be pause were all inappropriate due to under sensing. There was an episode on June 06, 2021 at midnight where she felt the symptoms of fluttering which appeared more consistent with atrial fibrillation. She notices that her episodes are more frequent. She is on flecainide 50 mg which I will increase to 100mg bid. She has lost 33 pounds since my last meeting but has not been evaluated for sleep apnea. She denied any chest pain EKG 06/25/2021 shows sinus rhythm. Prior HPI 59 yo female presents to clinic for routine f/u for palpitations, edema-lymphedema. Pt reports generalized fatigue, increased leg swelling, shortness of breath with exertion and palpitations. States this past thursday she had palpitations that lasted for over a half an hour, states she was at rest when it started and denied any recent illness, fever, chills, or change of her lifestyle. States she went to bed that evening with still feeling like her heart was racing, and it resolved while she slept. States that the entire next day she was exhausted and just felt terrible. Denied chest pain, fever, chills, N/V/D. Event monitor placed from 06-03 revealed 0 sinus rhythm with no atrial fibrillation there was a nonsustained ventricular tachycardia that was noted on 06/03/2020 AT 10PM of 4 beats occasional PVCs were seen. Echocardiogram performed on 05/30/2020 revealed ejection fraction of 60% normal systolic function and no significant valve problems PMH: Past Medical History: Diagnosis Date Abnormal ECG Arrhythmia Atrial fibrillation (CMS/HCC) Chronic kidney disease Hypertension PSH: Past Surgical History: Procedure Laterality Date ABLATION OF DYSRHYTHMIC FOCUS CARDIAC CATHETERIZATION CTA CHEST W AND/OR WO IV CONTRAST 08/19/2021 CT CHEST ANGIOGRAM W AND/OR WO IV CONTRAST BAUTISTA CONVERSION HAND SURGERY HYSTERECTOMY TUBAL LIGATION SH: Social Determinants of Health Tobacco Use: Low Risk (04/14/2023) Patient History Smoking Tobacco Use: Never Smokeless Tobacco Use: Never Passive Exposure: Not on file Alcohol Use: Not on file Financial Resource Strain: Not on file Food Insecurity: Not on file Transportation Needs: Not on file Physical Activity: Not on file Stress: Not on file Social Connections: Not on file Intimate Partner Violence: Not on file Depression: Not on file Housing Stability: Not on file Allergies: Markie (more content not included)... [facility] Summary Purpose Family History No Family History Records FoundNo Family History Records FoundNo Family History Records FoundNo Family History Records FoundNo Family History Records Found Advance Directives No Advanced Directives Records FoundNo Advanced Directives Records FoundNo Advanced Directives Records FoundNo Advanced Directives Records FoundNo Advanced Directives Records Found Additional Source Comments INFORMATION SOURCE (unrecogn ized section and content) DATE CREATED AUTHOR 12/03/2018 [facility] DATE CREATED AUTHOR AUTHOR'S ORGANIZ ATION 09/09/2021 [facility] DATE CREATED AUTHOR AUTHOR'S ORGANIZ ATION 11/04/2021 [facility] DATE CREATED AUTHOR AUTHOR'S ORGANIZ ATION 10/09/2023 [facility] EPIC DATE CREATED AUTHOR AUTHOR'S ORGANIZ ATION 10/26/2023 [facility] FOR RECORDS PERTAINING TO PATIENTS WHO ARE OR HAVE BEEN ENROLLED IN A CHEMICAL DEPENDENCY/SUBSTANCEABUSE PROGRAM, SOME INFORMATION MAY BE OMITTED. This clinical summary was aggregated from multiple sources. Caution should be exercised in using it in the provision of clinical care. This summary normalizes information from multiple sources, and as a consequence, information in this document may materially change the coding, format and clinical context of patient data. In addition, data may be omitted in some cases. CLINICAL DECISIONS SHOULD BE BASED ON THE PRIMARY CLINICAL RECORDS. [facility]. provides no warranty or guarantee of the accuracy or completeness of information in this document.
== END 2023-10-28 13:43 | disposition home or self-care (01) ==
PROVIDERS: PCP Family Medicine; Visit Provider Nurse Practitioner Family
DX: R06.09 Other forms of dyspnea (principal)
CPT/HCPCS: 93306

== ENCOUNTER 2025-06-12 07:44 | Outpatient (RCR) | payer BC, SELFPAY ==
--- NOTE | 2025-06-12 08:00 | CA_ITS ---
Patient Name: ELLE ISIDRO MR#: [id number] : 1960 Exam Date: 06/12/2025 Ordering Doctor: NATALIA WHEAT CNP ECHOCARDIOGRAM REPORT PROCEDURE: CA ECHO DOPPLER COMPLETE INDICATIONS: Chest pain, atrial fibrillation, hypertension, loop recorder, ablation COMPARISON: None. DESCRIPTION: COMPLETE ECHOCARDIOGRAM Real-time transthoracic echocardiography with 2D, M-mode, spectral and color flow Doppler performed. QUALITY: Technical quality was good. LEFT VENTRICLE: Normal chamber size. Normal left ventricular wall thickness. Estimated left ventricular ejection fraction is 60%. LV EF: Normal left ventricular ejection fraction, (>55%). DIASTOLIC: Normal diastolic function. ATRIAL SEPTUM: Visually appears intact. LEFT ATRIUM: Mild dilatation. RIGHT ATRIUM: Normal chamber size. RIGHT VENTRICLE: Normal chamber size. Normal right ventricular systolic function. TRICUSPID VALVE: Normal mobility and thickness. No stenosis with trivial regurgitation. No evidence of pulmonary hypertension. RVSP 30 mmHg MITRAL VALVE: Normal mobility and thickness. No evidence of mitral valve stenosis. There is no mitral annular calcification. Trivial mitral regurgitation. AORTIC VALVE: Normal trileaflet appearance. No visible sclerosis. Normal leaflet mobility. No evidence of aortic valve stenosis. No aortic regurgitation. AORTIC ROOT: Normal diameter and appearance, measuring 3.3 cm. Ascending aorta is normal in size. PULMONIC VALVE: Normal thickness and mobility. No stenosis. Trivial regurgitation. PERICARDIUM: No evidence of pericardial effusion. IVC: Collapses with inspiration. IVC is normal in size. PLEURA: CONCLUSION: 1. Normal ventricular size and systolic function. Estimated LVEF is 60%. 2. Normal diastolic function. 3. No significant valvular dysfunction. 4. Normal right-sided pressures. Adult Echocardiography Procedure Report Left Ventricle LVEDD (3.7 - 5.6 cm): 3.90 cm LVESD (2.2 - 4.0 cm): 2.31 cm LVIVS thickness (0.6 - 1.2 cm): 0.94 cm LVPW thickness (0.5 - 1.0 cm): 1.01 cm e': 0.15 m/s E - e': 5.07 LVOT Max Gradient: 3.86 mm[Hg] LVOT Area (cm2): 0.98 m/s Peak Velocity (LVOT): 0.98 m/s Mean Velocity (LVOT): 0.69 m/s LVOT Diameter 2.02 cm Left Ventricular Ejection Fraction: 60 % Left Atrium LA Volume Index (2D A2C): 40.15 ml/m2 Left Atrium Systolic Dimension: 3.30 cm Mitral Valve MV E to A Ratio: 1.23 Mitral Valve A-Wave Peak Velocity: 0.62 m/s Mitral Valve E-Wave Peak Velocity: 0.76 m/s Right Ventricle Aorta AO Root Diam: 3.29 cm Ascending Ao Diam: 2.90 cm Aortic Valve AoV Area (Peak Cholo): 2.72 cm2, 2.72 cm2 AoV Area (VTI): 2.58 cm2, 2.58 cm2 Peak Velocity(Antegrade Flow): 1.16 m/s Peak Gradient(Antegrade Flow): 5.36 mm[Hg] Mean Velocity(Antegrade Flow): 0.81 m/s Mean Gradient(Antegrade Flow): 3.05 mm[Hg] Velocity Time Integral: 27.95 cm Tricuspid Valve Peak Velocity (Regurgitant Flow): 2.20 m/s, 2.61 m/s Pulmonic Valve Mean Gradient: 2.78 mm[Hg] Mean Velocity: 0.78 m/s Peak Velocity: 1.16 m/s Peak Gradient: 5.37 mm[Hg] Right Atrium Right Atrium Systolic Pressure: 44.22 ml, 44.22 ml Dictated by: Trenton Mcmahan M.D. on 06/12/2025 at 14:30 Approved by: Trenton Mcmahan M.D. on 06/12/2025 at 14:33
== END 2025-06-14 23:59 | disposition home or self-care (01) ==
LOC: CARD 07:44
PROVIDERS: PCP Family Medicine; Visit Provider Nurse Practitioner Family
DX: I87.2 Venous insufficiency (chronic) (peripheral) (principal); I89.0 Lymphedema, not elsewhere classified
CPT/HCPCS: 93306